=== PATIENT | male | born 1935 | race Caucasian/White ===

== ENCOUNTER 2017-10-22 17:45 | Emergency (ER) | payer OTHER ==
[~2017-10-22] VITALS: Ht 175.3 cm; Wt 77.1 kg
[~2017-10-22 17:45] MED LIST: LISINOPRIL-HCT1 EACH PO; METHYLPREDNISOLO4 M2 PO; OXYCODONE HCL5 M1 PO; TERAZOSIN HCL2 M1 PO
[2017-10-22 19:51] LABS: ABSOLUTE BASOPHIL COUNT 0 /CUMM (0.0-0.2); ABSOLUTE EOSINOPHIL COUNT 0.2 /CUMM (0.0-0.7); ABSOLUTE GRANULOCYTE CT 3.6 /CUMM (1.4-6.5); ABSOLUTE LYMPH COUNT 1.5 /CUMM (1.2-3.4); ABSOLUTE MONOCYTE COUNT 0.4 /CUMM (0.10-0.60); BASOPHIL % 0.4 % (0.0-2.0); EOSINOPHIL % 3.2 % (0-5); HEMATOCRIT 38.5 % (42-52); MEAN CORPUSCULAR HGB 29.1 PG (27.0-31.0); MEAN CORPUSCULAR HGB CONC 33.5 G/DL (33.0-37.0); MEAN PLATELET VOLUME 8.1 FL (7.4-10.4); PLATELET COUNT 178 /CUMM (130-400); RBC DISTRIBUTION WIDTH 14.4 % (11.5-14.5); RED BLOOD CELL CT 4.43 /CUMM (4.70-6.10); WHITE BLOOD CELL COUNT 5.7 /CUMM (4.8-10.8)
[2017-10-22 20:13] VITALS: BP 152/80
--- NOTE | 2017-10-22 20:13 | ED NECK/BACK PAIN COMPLAINT ---
History of Present Illness General Chief Complaint: Lower Extremity Problems Stated Complaint: SEVERE PAIN BACK OF RT LEG PER PT Source: patient, family, old records Exam Limitations: no limitations Vital Signs & Intake/Output Vital Signs & Intake/Output Vital Signs Date Time Temp Pulse Resp B/P B/P Pulse O2 O2 Flow FiO2 Mean Ox Delivery Rate 10/22 2012 98.1 62 20 152/80 96 Room Air 10/22 1926 Room Air 10/22 1751 96.4 77 18 144/70 98 Room Air Allergies Coded Allergies: NO KNOWN ALLERGIES (09/25/11) Reconcile Medications Lisinopril/Hydrochlorothiazide (Lisinopril-Hctz 20-12.5 MG Tab) 1 EACH TABLET 1 TAB PO DAILY HEART (Reported) Methylprednisolone 4 MG TAB.DS.PK 1 TAB PO DAILY STEROID (Reported) Oxycodone HCl 5 MG TABLET 1 TAB PO BIDP PRN pain Terazosin HCl 2 MG CAPSULE 1 CAP PO QPM UNKNOWN (Reported) Triage Note: 82 YO MALE TO TRIAGE FOR EVAL OF PAIN TO R SIDE OF LOWER BACK RADAITING DOWN R LEG, DENIES RECENT INJURY TO LEG/BACK. STATES HX OF SPINAL STENOSIS. STATES UNABLE TO BEAR WEIGHT ON R LEG D/T PAIN. HAS BEEN TAKING TYLNEOL WITHOUT RELIEF. Triage Nurses Notes Reviewed? yes Onset: Last week Duration: day(s):, constant, continues in ED Timing: recent history Quality/Severity: moderate, radiation, sharpness Location: lumbar spine Radiation: buttocks, upper legs, lower legs Method of Injury: unknown Loss of Consciousness: no loss of consciousness Modifying Factors: movement, rest Associated Symptoms: lower back pain HPI: Several days prior to admission patient complains of right buttocks pain radiating to right upper and lower leg described as sharp mild to moderate severity worse with turning bending. Denies fever chills nausea vomiting diarrhea abdominal pain chest pain shortness breath headache dysuria rash bleeding change in motor sensory function change in bowel bladder habit. 1 month prior to admission reports falling was evaluated for head and facial injury after falling forward. He complains of continued right fifth metacarpal pain. Past History Travel History Traveled to [place] past 21 day No Medical History Any Pertinent Medical History? 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 No Review of Systems Review of Systems Constitutional: Reports: no symptoms. Eyes: Reports: no symptoms. Ears, Nose, Throat, Mouth: Reports: no symptoms. Respiratory: Reports: no symptoms. Cardiovascular: Reports: no symptoms. Gastrointestinal/Abdominal: Reports: no symptoms. Musculoskeletal: Reports: see HPI, back pain, joint pain. Skin: Reports: no symptoms. Neurological/Psychological: Reports: no symptoms. All Other Systems: Reviewed and Negative Physical Exam Physical Exam General Appearance: well developed/nourished, alert, awake, mild distress Head: atraumatic, normal appearance Eyes: Bilateral: normal appearance, PERRL, EOMI, normal inspection. Ears, Nose, Throat, Mouth: hearing grossly normal, moist mucous membrane Neck: normal inspection, supple, full range of motion, normal alignment Respiratory: normal breath sounds, chest non-tender, no respiratory distress, quiet respiration, lungs clear Cardiovascular: regular rate/rhythm, normal peripheral pulses, norml femoral pulses equa Peripheral Pulses: 4+ carotid (R), 4+ carotid (L) Gastrointestinal: normal bowel sounds, soft, non-tender, no organomegaly Back: normal inspection, normal range of motion, no vertebral tenderness Extremities: non-tender, normal range of motion, no ligament instability Straight Leg Raising: Right: Negative. Left: Negative. Sensory: Medial Le: L4R, L4L. Top of Foot: 2: L5R, L5L. Sole of Foot: 2: SIR, VIRI. Motor: Deficit L4 Right: No Deficit L4 Left: No Deficit L5 Right: No Deficit L5 Left: No Deficit S1 Right: No Deficit S1 Right: No DTR: Deficit L4 Left: No Deficit L4 Right: No Deficit S1 Left: No Deficit S1 Right: No Patellar: 3: L4 Right, L4 Left. 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 Skin: intact, normal color, warm/dry Core Measures CVA/TIA Diagnosis: No Progress Differential Diagnosis: herniated disc, myofascial strain, sciatica, T/L spine injury Plan of Care: Orders Procedure Date/time Status Durable Medical Equipment 09/03 2041 Active COMPREHENSIVE METABOLIC PANEL 10/22 1934 Complete CBC WITHOUT DIFFERENTIAL 10/22 1934 Complete Current Medications Sig/Moe Start time Last Medication Dose Stop Time Status Admin Prednisone 60 MG ONCE ONE 10/22 2129 UNVr 10/22 2130 Laboratory Tests 10/22/171944: Anion Gap 5, Estimated GFR > 60, BUN/Creatinine Ratio 32.2 H, Glucose 93, Calcium 9.0, Total Bilirubin 0.2, AST 25, ALT 27, Alkaline Phosphatase 75, Total Protein 6.5, Albumin 3.8, Globulin 2.7, Albumin/Globulin Ratio 1.4, CBC w Diff NO MAN DIFF REQ, RBC 4.43 L, MCV 87.0, MCH 29.1, MCHC 33.5, RDW 14.4, MPV 8.1, Gran % 63.0, Lymphocytes % 25.9, Monocytes % 7.5, Eosinophils % 3.2, Basophils % 0.4, Absolute Granulocytes 3.6, Absolute Lymphocytes 1.5, Absolute Monocytes 0.4 , Absolute Eosinophils 0.2, Absolute Basophils 0 Diagnostic Imaging: Viewed by Me: CT Scan. Discussed w/RAD: CT Scan. Radiology Impression: Acute mildly displaced fracture at the base of the fifth metacarpal the right hand. 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 Early osteoarthritic changes involving the PIP joints as well., There chronic changes of a spinal fusion with a transpedicular hardware construct extending from L4 to L5. No evidence to suggest hardware loosening or failure and no acute fracture. There is a prominent right foraminal extrusion at L3-L4 that causes moderate to severe compression of the foraminal segment of the right L3 nerve root. Otherwise no evidence of canal or neuroforaminal compromise. Of note there is relatively diffuse demineralization of bone. Departure Departure Time of Disposition: 2048 Disposition: HOME OR SELF CARE Condition: Stable Clinical Impression Primary Impression: Sciatica associated with disorder of lumbar spine Secondary Impressions: Fracture of metacarpal base of right hand, closed Referrals: Nitin LOPEZ,Abdoulaye Purvis MD,Axel Call for orthopedic follow up Dimple Pendleton MD (PCP/Family) Departure Forms: Customer Survey General Discharge Information Prescriptions: Current Visit Scripts Methylprednisolone. (Medrol) 0 PO SEE ADMIN CRITERIA #1 PAC Ibuprofen 1 TAB PO Q6P PRN pain #50 TAB with food Baclofen 1 TAB PO TID PRN muscle strain/spasm #30 TAB Tramadol HCl (Ultram) 1-2 TAB PO Q6H PRN severe pain #30 TAB
--- NOTE | 2017-10-22 20:30 | RADIOLOGY REPORT ---
EXAMINATION: XR HAND, RIGHT CLINICAL INFORMATION: Status post fall with proximal fifth metacarpal pain COMPARISON: None TECHNIQUE: PA, lateral, and oblique views of the right hand. FINDINGS: There is an oblique mildly comminuted fracture at the base of the fifth metacarpal with mild ulnar displacement of the distal fracture fragments. No other fractures identified. There is relative osteopenia. There is narrowing of the distal interphalangeal joints of the second through fifth digits with marked erosive changes present involving the third finger. Mild narrowing with endplate changes throughout the proximal interphalangeal joints of the second through fifth digits as well. IMPRESSION: Acute mildly displaced fracture at the base of the fifth metacarpal the right hand. 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 Early osteoarthritic changes involving the PIP joints as well.
--- NOTE | 2017-10-22 20:42 | CT SCAN REPORT ---
EXAMINATION: CT LUMBAR SPINE WITHOUT CONTRAST CLINICAL INFORMATION: Loose L5 screw on plain films. Right lower back pain radiating into the right lower extremity. COMPARISON: Lumbar spine radiographs 10/19/2017. TECHNIQUE: [employer] Girl images were obtained. CT acquisition of the lumbar spine was performed without contrast. Data was reformatted into multiplanar images at the acquisition workstation. DLP: 1146.04 mGy-cm FINDINGS: There are chronic postoperative changes of a spinal fusion with a transpedicular hardware construct extending from L4 to L5. Hardware is intact and there is no evidence to suggest loosening or failure. There is diffuse demineralization of bone. 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 There is no evidence of acute fracture. Slight grade 1 anterolisthesis of L4 on L5. Alignment is otherwise maintained. At T12-L1 the annular contour is normal. No canal or neuroforaminal compromise. At L1-L2 there is an asymmetrically bulging discs the left. No canal stenosis. No foraminal nerve root compression. At L2-L3 there is a diffusely bulging disc causing flattening of the ventral thecal sac. No canal stenosis. No foraminal nerve root compression. At L3-L4 there is a right foraminal extrusion superimposed upon a diffusely bulging disc causing flattening of the ventral thecal sac. Advanced facet degenerative change. No canal stenosis. Moderate to severe compression of the foraminal segment of the right L3 nerve root. At L4-L5 the canal is not well assessed due to the extent of streak artifact related to the fusion hardware. No foraminal nerve root compression. At L5-S1 there is a diffusely bulging disc. No canal stenosis. No foraminal nerve root compression. Limited visualization the retroperitoneal structures reveals heavily calcified at rest plaque involving abdominal aorta and iliac vessels. Psoas and paraspinal muscle groups are symmetric. IMPRESSION: There chronic changes of a spinal fusion with a transpedicular hardware construct extending from L4 to L5. No evidence to suggest hardware loosening or failure and no acute fracture. There is a prominent right foraminal extrusion at L3-L4 that causes moderate to severe compression of the foraminal segment of the right L3 nerve root. Otherwise no evidence of canal or neuroforaminal compromise. Of note there is relatively diffuse demineralization of bone.
[2017-10-22] MEDS ORDERED: IBUPROFEN600 M1 PO (21:21)
[2017-10-22] MEDS ORDERED: BACLOFEN10 M1 PO (21:21)
[2017-10-22] MEDS ORDERED: MEDROL4 M2 PO (21:21)
[2017-10-22] MEDS ORDERED: ULTRAM50 M1 PO (21:22)
== END 2017-10-22 21:36 ==
LOC: ERH 17:45
PROVIDERS: Emergency Medicine
DX: S62.310A Displaced fracture of base of second metacarpal bone, right hand, initial encounter for closed fracture (principal); M54.41 Lumbago with sciatica, right side; W19.XXXA Unspecified fall, initial encounter; Y92.9 Unspecified place or not applicable; Y93.9 Activity, unspecified; I10 Essential (primary) hypertension; M48.00 Spinal stenosis, site unspecified
CPT/HCPCS: 73130-RT; 96374; J1885